=== PATIENT | male | born 1985 | race Hispanic/Latino ===

== ENCOUNTER 2016-10-14 09:18 | Emergency (ER) | payer MEDICAID ==
[2016-10-14 09:22] VITALS: RESP 18
[2016-10-14] MEDS ORDERED: Oxycodone/Acetaminophen 5/325 mg Tab PO ONE (09:55)
--- NOTE | 2016-10-14 09:59 | ED PDOC ---
Lower Extremity Pain/Injury Time Seen by Provider: 10/14/16 09:25 Chief Complaint (Nursing): Back Pain Chief Complaint (Provider): R hip pain History Per: Patient History/Exam Limitations: no limitations Onset/Duration Of Symptoms: Days (yesterday) Current Symptoms Are (Timing): Still Present Additional Complaint(s): Pt. with right hip pain since yesterday. 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 Was mild ache and now gotten worse. Is localized to the right hip and occasionally radiates to the right knee and ankle. Pt. denies any numbness, tingles, weakness, abd pain, testicular pain. No back pain. Urinating well. No diarrhea. Took naproxen at 7am today. Pain on ambulatin. Past Medical History Reviewed: Nursing Documentation, Vital Signs Vital Signs: Last Vital Signs Temp 97.8 F 10/14/16 09:21 Pulse 60 10/14/16 09:21 Resp 18 10/14/16 09:21 BP 131/78 10/14/16 09:21 Pulse Ox 98 10/14/16 09:21 - Medical History PMH: No Chronic Diseases - Surgical History Other surgeries: knee surgery - Family History Family History: States: Unknown Family Hx - Living Arrangements Living Arrangements: With Family - Social History Current smoker - smoking cessation education provided: No Alcohol: None Drugs: Denies - Allergies Allergies/Adverse Reactions: Allergies Allergy/AdvReac Type Severity Reaction Status Date / Time No Known Allergies Allergy Verified 10/14/16 09:32 Review of Systems Constitutional: Negative for: Weakness Cardiovascular: Negative for: Chest Pain Respiratory: Negative for: Shortness of Breath Gastrointestinal: Negative for: Nausea, Vomiting, Abdominal Pain, Diarrhea, Constipation, Rectal Pain Genitourinary Male: Negative for: Dysuria, Frequency, Incontinence, Penile Discharge, Scrotal Pain, Rash, Penile Pain Musculoskeletal: Positive for: Leg Pain. Negative for: Neck Pain, Shoulder Pain , Arm Pain Skin: Negative for: Rash Neurological: Negative for: Weakness, Numbness, Incoordination, Confusion Physical Exam - Reviewed Nursing Documentation Reviewed: Yes Vital Signs Reviewed: Yes - Physical Exam Appears: Positive for: Well, Non-toxic, No Acute Distress Neck: Positive for: Normal, Painless ROM, Supple Cardiovascular/Chest: Positive for: Regular Rate, Rhythm Respiratory: Positive for: CNT, Normal Breath Sounds Pulses-Dorsalis Pedis (R): 2+ Gastrointestinal/Abdominal: Positive for: Normal Exam, Soft. Negative for: Tenderness, Mass, Distended, Guarding Back: Positive for: Normal Inspection. Negative for: L CVA Tenderness, R CVA Tenderness, Vertebral Tenderness, Decreased ROM, Muscle Spasm Extremity: Positive for: Normal ROM (on passive and active with pain on R hip.) , Tenderness (R hip pinpoint tenderness), Other (no erythema or induration to hip area). Negative for: Pedal Edema, Calf Tenderness, Deformity Neurologic/Psych: Positive for: Alert, Oriented. Negative for: Motor/Sensory Deficits - Laboratory Results Result Diagrams: 10/14/16 15:16 10/14/16 15:16 Interpretation Of Abn Labs: no acute - ECG O2 Sat by Pulse Oximetry: 98 Pulse Ox Interpretation: Normal - Radiology X-Ray: Interpreted by Me, Viewed By Me X-Ray Interpretation: No Acute Disease - CT Scan/US ct Other Rad Studies (CT/US): Read By Radiologist Other Rad Interpretation: no acute - Progress ED Course And Treament: 1053: Still in pain. Will get ct. 1515: Still pain on ambulating. Difficulty walking. Will get MRI. Discussed with Dr. Johansen. 1641: Dr. South to take over care. Fu on mri. Stable. AAOx3. Disposition - Clinical Impression Clinical Impression: Hip pain - Patient ED Disposition Is Patient to be Admitted: Transfer of Care - Disposition Disposition: Transfer of Care Disposition Time: 16:41 Condition: STABLE Patient Signed Over To: Rachele South
[2016-10-14] MEDS ORDERED: Oxycodone/Acetaminophen 5/325 mg Tab ONE (10:01)
--- NOTE | 2016-10-14 11:48 | RAD ---
PROCEDURE: Right Hip Radiographs. Frontal view of the pelvis and both hips as well as AP and frogleg lateral views right hip performed. HISTORY: pain COMPARISON: None. FINDINGS: BONES: No evidence of acute displaced fracture nor dislocation. The osseous structures appear intact. Both femoral heads appropriately located within the respective acetabula. JOINTS: Joint spaces preserved. No significant osteoarthritis. SOFT TISSUES: Normal. OTHER FINDINGS: Note made of several multiple small calcifications overlying the inferior 1/2 of the true pelvis likely representing small calcified pelvic phleboliths. IMPRESSION: No evidence of acute displaced fracture nor dislocation.
[2016-10-14] MEDS ORDERED: HYDROmorphone 0.5 mg/0.5 ml ISec ONE (13:57)
--- NOTE | 2016-10-14 15:06 | CT ---
PROCEDURE: CT scan right hip dated 10/14/2016 HISTORY: Pain COMPARISON: Comparison made with prior plain film radiographs right hip earlier same day TECHNIQUE: Contiguous axial images of the right hip were obtained. Coronal and sagittal reformats were generated. Radiation dose. Total DLP = 534.01 mGy- cm. This CT exam was performed using one or more of the following dose reduction techniques: Automated exposure control, adjustment of the mA and/or kV according to patient size, and/or use of iterative reconstruction technique. FINDINGS: BONES: No evidence of acute displaced fracture nor dislocation. Osseous structures appear intact. There are no cortical destructive changes. No focal lytic or blastic lesions are identified. RIGHT HIP JOINT: Mild subchondral sclerosis along the acetabular roof. Tiny corticated bony density at adjacent to the superolateral margin right acetabular roof. Tiny enthesophytes also seen arising from the superior margin of the greater trochanter. SOFT TISSUES: No soft tissue masses or collections. . Small the nonspecific at right inguinal lymph nodes. There also a few small calcified pelvic phleboliths within the right aspect of the pelvis. IMPRESSION: No acute fractures. Mild subchondral sclerosis acetabular roof. Small bony density adjacent to the superolateral margin of right acetabular roof. There also small enthesophytes arising from the superior margin greater trochanter
[2016-10-14] MEDS ORDERED: Sodium Chloride 0.9% 1,000 ML IV STA (15:13)
[2016-10-14 15:24] LABS: BASO % 0.2 % (0.0-2.0); EOS # 0.1 K/uL (0.0-0.7); EOS % 0.9 % (0.0-4.0); HEMATOCRIT 40.2 % (35.0-51.0); LYMPH # 2.2 K/uL (1.0-4.3); LYMPH % 24.5 % (20.0-40.0); MEAN CELL VOLUME 92.3 fl (80.0-94.0); MEAN CORPUSCULAR HEMOGLOBIN 31.7 pg (27.0-31.0); MEAN CORPUSCULAR HGB CONC 34.3 g/dL (33.0-37.0); MEAN PLATELET VOLUME 7.5 fl (7.2-11.7); MONO # 0.8 K/uL (0.0-0.8); MONO % 8.6 % (0.0-10.0); NEUT # 5.8 K/uL (1.8-7.0); NEUT % 65.8 % (50.0-75.0); NRBC % 0.1 % (0.0-0.0); RED CELL DISTRIBUTION WIDTH 12.8 % (11.5-14.5); WHITE BLOOD COUNT 8.8 K/uL (4.8-10.8)
[2016-10-14 15:33] LABS: ALB/GLOB RATIO 1.6 (1.0-2.1); ALKALINE PHOSPHATASE 37 U/L (38-126); ALT/SGPT 33 U/L (21-72); AST/SGOT 27 U/L (17-59); BILIRUBIN,TOTAL 0.9 mg/dl (0.2-1.3); BLOOD UREA NITROGEN 18 mg/dl (9-20); CALCIUM 9.3 mg/dL (8.4-10.2); CARBON DIOXIDE 30 mmol/L (22-30); CHLORIDE 102 mmol/L (98-107); GFR AFRICAN-AMERICAN > 60; GLUCOSE,RANDOM 71 mg/dL (75-110); SODIUM 142 mmol/l (132-148); TOTAL PROTEIN 7.2 G/DL (6.3-8.2)
--- NOTE | 2016-10-14 17:22 | ED PDOC ---
- Laboratory Results Result Diagrams: 10/14/16 15:16 10/14/16 15:16 - ECG O2 Sat by Pulse Oximetry: 98 Medical Decision Making Medical Decision Makin Transfer of care of patient from Dr. Lala to Dr. South. Patient has right hip pain pending MRI result and final ED disposition. IMPRESSION: 1. There is significant swelling within the gluteus medius muscle consistent with muscle strain with probable partial tear. 2. There is a partial tear of the gluteus medius tendon. 3. Small foci of hypointensity are identified in the region of the gluteus medius muscle, which are mineralized on the previous CT, suggestive of calcifications or ossific loose bodies. 4. Tear of the superolateral aspect of the labrum. Small cystic collections or fluid are identified region of the inferior aspect of the labrum and adjacent cartilage. 5. Additional findings described above. Thank you for allowing us to participate in the care of your patient. Dictated and Authenticated by: Emiliano Sena MD 10/14/2016 5:57 PM Eastern Time ([place] & [place]) Scribe Attestation: Documented by Ana Maria Craft acting as a scribe for Rachele South MD. Scribe Attestation: All medical record entries made by the Scribe were at my direction and personally dictated by me. I have reviewed the chart and agree that the record accurately reflects my personal performance of the history, physical exam, medical decision making, and the department course for this patient. I have also personally directed, reviewed, and agree with the discharge instructions and disposition. Disposition Counseled Patient/Family Regarding: Studies Performed, Diagnosis, Need For Followup, Rx Given - Clinical Impression Clinical Impression: Hip pain, Strain of gluteus medius, Muscle tear - POA Present On Arrival: None - Disposition Referrals: [facility] [Outside] Moni Sheikh MD [Family Provider] - Wilbert Arevalo MD [Staff Provider] - Disposition: Routine/Home Disposition Time: 18:21 Condition: IMPROVED Additional Instructions: PLEASE CONTINUE TO USE CANE NEEDED FOR COMFORT CALL CLINIC TO SETUP FOLLOW UP APPOINTMENT BY THE END OF WEEK. YOU MAY NEED PHYSICAL THERAPY FOR TREATMENT Prescriptions: Ibuprofen [Motrin Tab] 600 mg PO Q8 PRN #60 tab PRN Reason: Pain, Moderate (4-7) traMADol [Ultram] 50 mg PO TID PRN #15 tab PRN Reason: SEVERE PAIN ONLY Instructions: Muscle Strain (ED), Hip Pain (ED) Forms: [facility] ED School/Work Excuse
[2016-10-14 18:37] VITALS: BP 128/78; PULSE 70; TEMP 98; O2SAT 99
--- NOTE | 2016-10-15 10:42 | MRI ---
PROCEDURE: HISTORY: pain and difficulty walking R hip and pelvis COMPARISON: TECHNIQUE: FINDINGS: There is abnormal hyperintense T2 signal within the gluteus medius muscle on the right with muscle strain and high-grade partial tear. There are foci of abnormal signal within the superolateral labrum suggestive of a labral tear. There is a tear of the superolateral aspect of the labrum with small cystic collections of fluid identified along the inferior aspect of the labrum and adjacent cartilage. Limited assessment of the visualized internal pelvic cavity is unremarkable. There is no fracture. IMPRESSION: High-grade partial tear of the right gluteus muscle extending to the insertion upon the superior facet of the greater trochanter. Tear of the superolateral aspect of the right labrum.
== END 2016-10-14 18:37 | disposition home or self-care (01) ==
LOC: H.ER 09:18
DX: M25.551 Pain in right hip (principal)

== ENCOUNTER 2016-10-29 12:50 | Emergency (ER) | payer MEDICAID ==
[2016-10-29 13:00] VITALS: BP 128/94; PULSE 96; RESP 16; TEMP 98.4; O2SAT 100
--- NOTE | 2016-10-29 13:52 | ED PDOC ---
HPI: General Adult Time Seen by Provider: 10/29/16 13:50 Chief Complaint (Nursing): Male Genitourinary Chief Complaint (Provider): UNPROTECTED INTERCOURSE History Per: Patient (31 Y/O MALE HERE WITH COMPLAINT OF UNPROTECTED INTERCOURSE THAT OCCURRED 10/28. WAS SEEN IN ED [place] AND GIVEN FIRST DOSE OF TRUVADA/SENTRESS. STATES HIS INSURANCE DOES NOT COVER HERE AND REQUIRES PRE- AUTHORIZATION FOR HIM TO FILL. HAS NO H/O HIV. NO OTHER COMPLAINTS CURRENTLY.) Past Medical History Reviewed: Historical Data, Nursing Documentation, Vital Signs Vital Signs: Last Vital Signs Temp 98.4 F 10/29/16 12:56 Pulse 96 H 10/29/16 12:56 Resp 16 10/29/16 12:56 BP 128/94 H 10/29/16 12:56 Pulse Ox 100 10/29/16 13:52 - Family History Family History: States: Unknown Family Hx - Home Medications Home Medications: Ambulatory Orders Medication Instructions Recorded Ibuprofen [Motrin Tab] 600 mg PO Q8 PRN #60 tab 10/14/16 traMADol [Ultram] 50 mg PO TID PRN #15 tab 10/14/16 Emtricitabine/Tenofovir Diso 1 tab PO DAILY #28 tab 10/29/16 [Truvada 200 MG-300 MG] Raltegravir Potassium [Isentress] 1 tab PO BID #56 tab 10/29/16 - Allergies Allergies/Adverse Reactions: Allergies Allergy/AdvReac Type Severity Reaction Status Date / Time No Known Allergies Allergy Verified 10/29/16 12:56 Review of Systems ROS Statement: Except As Marked, All Systems Reviewed And Found Negative Physical Exam - Reviewed Nursing Documentation Reviewed: Yes Vital Signs Reviewed: Yes - Physical Exam Appears: Positive for: Well, Non-toxic, No Acute Distress Head Exam: Positive for: ATRAUMATIC, NORMAL INSPECTION, NORMOCEPHALIC Skin: Positive for: Normal Color, Warm, DRY Eye Exam: Positive for: EOMI, Normal appearance, PERRL ENT: Positive for: Normal ENT Inspection Neck: Positive for: Normal, Painless ROM Cardiovascular/Chest: Positive for: Regular Rate, Rhythm Respiratory: Positive for: CNT, Normal Breath Sounds Gastrointestinal/Abdominal: Positive for: Normal Exam, Bowel Sounds, Soft Back: Positive for: Normal Inspection Extremity: Positive for: Normal ROM Neurologic/Psych: Positive for: Alert, Oriented - ECG O2 Sat by Pulse Oximetry: 100 - Progress ED Course And Treament: D/W DR. HU. CONFIRMS DOSE AND RX FOR PATIENT. Disposition - Clinical Impression Clinical Impression: HIV exposure - Patient ED Disposition Is Patient to be Admitted: No - Disposition Disposition: Routine/Home Disposition Time: 14:00 Condition: FAIR Prescriptions: Emtricitabine/Tenofovir Diso [Truvada 200 MG-300 MG] 1 tab PO DAILY #28 tab Raltegravir Potassium [Isentress] 1 tab PO BID #56 tab Instructions: Safe Sex (ED)
[2016-10-29] MEDS ORDERED: cefTRIAXone (Rocephin) 250 mg Inj IM ONE (14:10)
[2016-10-29] MEDS ORDERED: cefTRIAXone (Rocephin) 250 mg Inj ONE (14:51)
[2016-10-29] MEDS ORDERED: Sterile Water 10 ML IV ONE (14:52)
== END 2016-10-29 15:21 | disposition home or self-care (01) ==
LOC: H.ER 12:50
DX: Z72.51 High risk heterosexual behavior (principal)

== ENCOUNTER 2016-10-29 20:16 | Emergency (ER) | payer MEDICAID ==
[2016-10-29 20:33] VITALS: BP 109/63; PULSE 76; RESP 16; TEMP 98.5; O2SAT 100
--- NOTE | 2016-10-29 20:53 | ED PDOC ---
HPI: General Adult Time Seen by Provider: 10/29/16 20:51 Chief Complaint (Nursing): Medical Clearance Chief Complaint (Provider): post exposure prophylaxis History Per: Patient (31 y/o male here for post-exposure prophylaxis after unprotected sex. Was seen in ED in [place] and given first dose there but unable to fill rx due to need for pre-authorization paperwork.) Past Medical History Reviewed: Historical Data, Nursing Documentation, Vital Signs Vital Signs: Last Vital Signs Temp 98.5 F 10/29/16 20:31 Pulse 76 10/29/16 20:31 Resp 16 10/29/16 20:31 BP 109/63 10/29/16 20:31 Pulse Ox 100 10/29/16 20:53 - Family History Family History: States: Unknown Family Hx - Home Medications Home Medications: Ambulatory Orders Medication Instructions Recorded Ibuprofen [Motrin Tab] 600 mg PO Q8 PRN #60 tab 10/14/16 traMADol [Ultram] 50 mg PO TID PRN #15 tab 10/14/16 Emtricitabine/Tenofovir (Tdf) 1 each PO DAILY #3 tablet 10/29/16 [Truvada 200 mg-300 mg Tablet] Emtricitabine/Tenofovir Diso 1 tab PO DAILY #28 tab 10/29/16 [Truvada 200 MG-300 MG] Emtricitabine/Tenofovir Diso 1 tab PO DAILY #3 tab 10/29/16 [Truvada 200 MG-300 MG] Raltegravir Potassium [Isentress] 1 tab PO BID #56 tab 10/29/16 Raltegravir Potassium [Isentress] 1 tab PO BID #6 tab 10/29/16 Raltegravir Potassium [Isentress] 1 tab PO BID #6 tab 10/29/16 - Allergies Allergies/Adverse Reactions: Allergies Allergy/AdvReac Type Severity Reaction Status Date / Time No Known Allergies Allergy Verified 10/29/16 20:30 Review of Systems ROS Statement: Except As Marked, All Systems Reviewed And Found Negative Physical Exam - Reviewed Nursing Documentation Reviewed: Yes Vital Signs Reviewed: Yes - Physical Exam Appears: Positive for: Well, Non-toxic, No Acute Distress Head Exam: Positive for: ATRAUMATIC, NORMAL INSPECTION, NORMOCEPHALIC Skin: Positive for: Normal Color, Warm, DRY Eye Exam: Positive for: EOMI, Normal appearance, PERRL ENT: Positive for: Normal ENT Inspection Neck: Positive for: Normal, Painless ROM Cardiovascular/Chest: Positive for: Regular Rate, Rhythm Respiratory: Positive for: CNT, Normal Breath Sounds Gastrointestinal/Abdominal: Positive for: Normal Exam, Bowel Sounds, Soft Back: Positive for: Normal Inspection Extremity: Positive for: Normal ROM Neurologic/Psych: Positive for: Alert, Oriented - ECG O2 Sat by Pulse Oximetry: 100 - Progress ED Course And Treament: truvada 1 tab in ED Isentress 1 tab po in ED d/w pharmacy and Dr. Forman. Will dispense post-exposure prophylaxis packet. Disposition - Clinical Impression Clinical Impression: History of unprotected sex - Patient ED Disposition Is Patient to be Admitted: No - Disposition Referrals: [facility] [Outside] Disposition: Routine/Home Disposition Time: 21:52 Condition: FAIR Prescriptions: Emtricitabine/Tenofovir (Tdf) [Truvada 200 mg-300 mg Tablet] 1 each PO DAILY #3 tablet Emtricitabine/Tenofovir Diso [Truvada 200 MG-300 MG] 1 tab PO DAILY #3 tab Raltegravir Potassium [Isentress] 1 tab PO BID #6 tab Raltegravir Potassium [Isentress] 1 tab PO BID #6 tab Instructions: Postexposure Prophylaxis (ED)
[2016-10-29] MEDS ORDERED: Emtricitabine-Tenofovir 200 mg-300 mg Tab PO STA (21:09)
== END 2016-10-29 22:19 | disposition home or self-care (01) ==
LOC: H.ER 20:16
DX: Z72.51 High risk heterosexual behavior (principal)